=== PATIENT | female | born 1985 | race Two or more races ===

== ENCOUNTER 2016-03-22 12:52 | Emergency (ER) | payer SELFPAY ==
[2016-03-22 13:34] LABS: URINE BILIRUBIN NEGATIVE (NEGATIVE); URINE BLOOD NEGATIVE (NEGATIVE); URINE GLUCOSE (UA) NEGATIVE (NEGATIVE); URINE LEUKOCYTE ESTERASE NEGATIVE (NEGATIVE); URINE NITRITE NEGATIVE (NEGATIVE); URINE PROTEIN NEGATIVE (NEGATIVE); URINE UROBILINOGEN NORMAL (0-1 mg/dl)
[2016-03-22 13:35] LABS: URINE APPEARANCE CLEAR; URINE COLOR YELLOW
[2016-03-22 13:42] LABS: HCG,QUALITATIVE URINE NEGATIVE
[2016-03-22] MEDS ORDERED: ONDANSETRON 4 MG/2ML 2 ML VIAL ONE (14:08)
[2016-03-22] MEDS ORDERED: SODIUM CHLORIDE 0.9% 1,000 ML ONE (14:09)
[2016-03-22 14:17] LABS: ABSOLUTE NEUTROPHIL COUNT 3.1 K/mm3 (1.8-7.7); BASO # 0.1 K/mm3 (0.0-0.2); BASO % 0.8 % (0.2-1.0); EOS # 0.1 (0.0-0.5); EOS % 1.7 % (0.9-2.9); HEMATOCRIT 42.5 % (37.0-47.0); HEMOGLOBIN 14.3 gm/l (12.0-16.0); IMM NEUT% 0.2 % (0-1); LYMPH # 2.2 (1.0-4.8); LYMPH % 36.5 % (15-45); MEAN CELL VOLUME 87.1 fl (81.0-99.0); MEAN CORPUSCULAR HEMOGLOBIN 29.3 pg (27.0-31.0); MEAN CORPUSCULAR HGB CONC 33.6 g/dl (33.0-37.0); MEAN PLATELET VOLUME 10.2 fl (7.4-10.4); MONO # 0.5 (0.0-0.8); MONO % 8.8 % (4-12); PLATELET COUNT 253 K/mm3 (130-400)
[2016-03-22 15:03] LABS: ALB/GLOB RATIO 1.3 (>1.0); ALBUMIN 4.4 gm/dL (3.5-5.7); CALCIUM 9.5 mg/dL (8.6-10.3)
== END 2016-03-22 16:39 | disposition home or self-care (01) ==
LOC: ED 12:52
DX: Z72.820 Sleep deprivation (principal); R11.10 Vomiting, unspecified
CPT/HCPCS: 81025; 82150; 85025; 80053; 81003; 96375; 99283 ×2; 96361 ×2; 82962; J2405; J7030